=== PATIENT | male | born 1990 | race Caucasian/White ===

== ENCOUNTER 2023-03-09 06:28 | Emergency (ER) | payer OTHER, SELFPAY ==
[2023-03-09 06:31] VITALS: BP 170/110
--- NOTE | 2023-03-09 06:50 | ED.GENMED ---
History of Present Illness
General
Chief Complaint: Back Pain
Source: patient
Exam Limitations: none
Time Seen by Provider: 03/09/23 06:38
Nursing documentation reviewed up to this point in time: agreed with
Travel History
Have you had any contact with someone who has COVID-19?: No
Do you have any symptoms of coronavirus? Fever > 100 degrees, chills, cough, shortness of breath, sore throat, loss of taste or smell, muscle aches, or headache?: No
History of Present Illness
History of Present Illness:
33-year-old male presents emergency department complaining of low back pain and left lower back pain for the past 3 to 4 weeks. He also states he has had intermittent foul-smelling urine, and yesterday began having urinary frequency. He states he
took ibuprofen yesterday and it helps a little. It hurts when he bends down. He denies any specific injury. He has not seen his primary care doctor, as he does not have 1. He is also not seen any other physician in the past 3-4 weeks since his
pain began.
Past History
Past History
ED Past Medical History: HTN
ED Past Surgical History: None
Social History
Tobacco: Non-smoker
Alcohol: None
Drug: None
Personal:
Living: with family
Employment: Employed
Review of Systems
Review of Systems
Allergies reviewed?: Yes
All Other Systems: Not applicable
Constitutional: Reports no symptoms; Denies fever
EENT: Reports no symptoms
Respiratory: Reports no symptoms
Cardiac: Reports no symptoms
ABD/GI: Reports no symptoms
: Reports other (Smelly urine)
Musculoskeletal: Reports back pain
Skin: Reports rash (Right foot)
Neurological: Reports no symptoms
Endocrine: Reports no symptoms
Hematologic/Lymphatic: Reports no symptoms
Psychiatric: Reports no symptoms
Phy Exam
Physical Exam
Physical Exam:
Physical Exam
General: no apparent distress, not acutely ill
Neck: supple. no meningeal signs. normal posterior pharynx
Heart: s1/s2 regular rate and rhythm, no murmur. equal radial
pulses.
HEENT: Pupils equal round reactive to light, EOMI
Lungs: no acute respiratory distress. clear bilaterally
Abdomen: normal bowel sounds. not tender. no CVAT
Neuro: alert and oriented. no focal neurological deficits cranial nerves II through XII intact
Skin: Mild erythema and dry skin with cracking of right heel and medial foot. No petechiae
Psychiatric: well kept. interactive and cooperative
Extremities: no edema. no calf tenderness. negative homans. good distal pulses
Course
Orders/Labs/Results
Orders:
Orders
03/09/23 06:43
Urinalysis Reflex To Culture Urgent
Date Specimen was Collected: 03/09/23
Time Specimen was Collected: 06:42
03/09/23 06:49
Ketorolac [Toradol] 15 mg IM NOW STA
Lumbar Spine Complete, 4 View [CR Lumbar Spine Comp Min 4 Vw*] Urgent
Comment:
Reason For Exam: low back pain 3-4 weeks
Vital Signs
Initial and Last Documented VS:
Initial Vital Signs
Temp Pulse Resp BP Pulse Ox
97.8 F 80 22 170/110 98
03/09/23 06:31 03/09/23 06:31 03/09/23 06:31 03/09/23 06:31 03/09/23 06:31
Last Documented Vital Signs
Temp Pulse Resp BP Pulse Ox
97.8 F 69 18 119/75 96
03/09/23 06:31 03/09/23 07:34 03/09/23 07:34 03/09/23 07:34 03/09/23 07:34
MDM/Problems Addressed
Differential Diagnosis Includes:
Sciatica, urinary tract, kidney stone
MDM/Problems Addressed:
33 yo male with low back pain possibly sciatica. Will treat with Flexeril and prednisone, follow-up with pain management. No signs of UTI. Do not suspect kidney stone. Right-sided tinea pedis.
Chronic conditions affecting care: HTN
Acute Exacerbation and/or Progression of Chronic Illness: HTN
*Radiology
Radiology exam reviewed: preliminary read by ED provider (Lumbar spine x-ray no acute findings)
*Pulse Oximetry
Patient hypoxic: no
*EKG
Interpreted by ED Provider?: NA
*Microfilm Duplicating Unit Supervisor Interpretation
Rate: Microfilm Duplicating Unit Supervisor- N/A
*Critical Care Note
Total Time (30-74mins, 75-104mins- exclusive of procedures): Not Applicable
Data Reviewed
Further Testing Considered But Not Given:
ct scan not indicated
Patient Management
Social determinants of health affecting care: Living situation and Strong social support
Escalation/DeEscalation of care consider admission/obs:
admit not indicated
ED Attending Note
-
Portions of this chart may have been created with voice recognition software.� Occasional wrong word or��sound alike� substitutions may have occurred due to the inherent limitations of voice recognition software.
Discharge Plan
Departure
Patient Disposition: Home (Routine Discharge)
Date of Disposition: 03/09/23
Time of Disposition: 08:13
Patient with high blood pressure during this ER visit?: No
Condition: Good
Discharge Problem:
Low back pain, Tinea pedis
Instructions: Low Back Pain (DC), Sciatica (DC), Athlete's Foot (DC)
Prescriptions:
New
cyclobenzaprine 10 mg tablet
10 mg PO TID PRN (Reason: muscle spasm) Qty: 10 0RF
prednisone 50 mg tablet
50 mg PO DAILY Qty: 5 0RF
clotrimazole [Clotrimazole AF] 1 % cream
1 applic topical BID Qty: 15 0RF
Referrals:
Gabriel Sandoval MD [Active] - Call in 1-3 days for appt
Interventions
Interventions:
*Risk Screen - Suicide Last Done: 03/09/23 06:31
*Neglect/Abuse Screening Last Done: 03/09/23 06:31
ED- Cardiac Assessment Last Done: 03/09/23 07:40
ED-Musculoskeletal Assessment Last Done: 03/09/23 06:40
ED- Neurological Assessment Last Done: 03/09/23 06:46
ED-Psychological Assessment Last Done: 03/09/23 06:48
ED- Pulmonary Assessment Last Done: 03/09/23 06:48
[2023-03-09 06:56] LABS: Urine Albumin Negative (Neg - Trace); Urine Bilirubin Negative (Negative); Urine Character Clear (Clear); Urine Color Yellow; Urine Glucose Negative (Negative); Urine Ketone Negative (Negative); Urine Leukocyte Negative (Negative); Urine Nitrite Negative (Negative); Urine Occult Blood Negative (Negative); Urine Urobilinogen Negative (Neg - 1+)
[2023-03-09] MEDS: TORADOL 15 MG IM (07:31)
[2023-03-09 07:34] VITALS: BP 119/75
== END 2023-03-09 08:35 | disposition home or self-care (01) ==
LOC: EMR 06:28
PROVIDERS: EMERGENCY PHYSICIAN Emergency Medicine
DX: B35.3 Tinea pedis (principal); M54.50 Low back pain, unspecified; R35.0 Frequency of micturition; I10 Essential (primary) hypertension; Z86.16 Personal history of COVID-19
CPT/HCPCS: 99284; 96372; 72110; 81003

== ENCOUNTER 2024-08-27 19:46 | Emergency (ER) | payer OTHER, SELFPAY ==
[2024-08-27 19:48] VITALS: BP 164/103
[2024-08-27 20:14] LABS: Hematocrit 44.2 % (39.0-52.0); Hemoglobin 15.7 g/dL (13.0-18.0); Mean Corp Hgb Conc. 35.5 g/dL (33.0-37.0); Mean Corpuscular Volume 81.0 fL (80.0-94.0); Nucleated Red Blood Cells % 0 % (-); Platelet Count 126 10^3/uL (130-400); Red Cell Dist. Width 12.5 % (11.5-14.5)
[2024-08-27 20:20] VITALS: BMI 39.3
[2024-08-27 20:22] VITALS: BP 126/87
[2024-08-27 20:36] LABS: ALT (SGPT) 233 U/L (0-50); AST (SGOT) 128 U/L (17-59); Albumin 4.4 g/dl (3.5-5.0); Alkaline Phosphatase 59 U/L (38-126); Blood Urea Nitrogen 9 mg/dl (9-20); Calcium 9.0 mg/dl (8.4-10.2); Carbon Dioxide 23 mmol/L (22-30); Chloride 109 mmol/L (98-107); Estimated Creatinine Clearance > 125 ml/min; Glucose 186 mg/dl (70-99); Potassium 4.6 mmol/L (3.5-5.1); Sodium 138 mmol/L (135-145); Total Protein 7.4 g/dl (6.3-8.2); Troponin I < 0.012 ng/ml; eGFR > 60.00
--- NOTE | 2024-08-27 20:57 | ED.GENMED ---
History of Present Illness
General
Chief Complaint: Headache
Time Seen by Provider: 08/27/24 20:57
History of Present Illness
History of Present Illness:
TIME OF INITIAL EVALUATION
- 9 PM
REVIEW OF OLD RECORDS
- The patient has a history of high blood pressure
Note:
CHIEF COMPLAINT(S)
Headache following sexual intercourse.
HISTORY OF PRESENT ILLNESS
The patient is a 34-year-old male who developed a sudden-onset headache shortly after sexual intercourse, which occurred around 4:00 AM. The patient describes the headache as initially severe and occurring unexpectedly after the completion of
intercourse. The concern for the sudden nature of the headache led to a computed tomography (CT) scan without contrast, followed by one with contrast. The initial CT scan did not reveal any signs of intracranial bleeding. The patient reports that
his headache has improved since onset. He mentions experiencing episodes of his left eyelid twitching over the past two weeks, which he describes as happening frequently. The patient denies other neurological symptoms. He does report feelings of
bloating and gastric discomfort following alcohol consumption recently, but states he is not a frequent drinker.
The patient also describes episodes where he feels excessively tired after eating. He acknowledges difficulties with weight management, as he is not consuming large amounts of food but is unable to lose weight. Initial blood work indicated elevated
liver transaminase levels, but bilirubin and alkaline phosphatase levels were normal.
The patient took Advil for his headache earlier. He expressed concerns about his heart, noting palpitations and worries about cardiac issues. An electrocardiogram (EKG) was performed, though the results were not discussed in detail during this visit.
SOCIAL DETERMINANTS AFFECTING HEALTH
The patient indicates that he does not frequently consume alcohol but recently experienced bloating and gastric discomfort after drinking.
PHYSICAL EXAM
General: Alert, no acute distress.
Skin: Warm, dry.
Head: Normocephalic, atraumatic.
Neck: Supple, trachea midline.
Eyes, Ears, Nose, Mouth, and Throat: Oral mucosa moist. No lid twitching observed at present.
Cardiovascular: Normal peripheral perfusion, No edema. Heart rhythm evaluated audibly.
Respiratory: Respirations are non-labored.
Gastrointestinal: Abdomen nondistended, reports sensitivity upon liver palpation without significant pain.
Back: Normal range of motion, Normal alignment.
Musculoskeletal: Normal range of motion, normal strength.
Neurological: Alert and oriented to person, place, time, and situation. Good coordination and strength in all limbs. No focal neurological deficit observed.
Psychiatric: Cooperative, appropriate mood and affect.
PROBLEM LIST
Acute Problems:
- Post-coital headache
- Eyelid twitching (blepharospasm)
- Elevated liver transaminase levels
- Gastric discomfort post-alcohol consumption
- Excessive postprandial fatigue
PLAN
- Await the radiologists interpretation of CT results to rule out serious neurological causes.
- Continue current management of headache with Advil (ibuprofen), 800 mg (four 200 mg tablets) every eight hours as needed.
- Follow up with primary care physician for further evaluation of elevated liver enzymes.
- Consider discussing postprandial fatigue and weight management strategies with primary care physician.
- Reassurance regarding the benign nature of left eyelid twitching.
DIFFERENTIAL DIAGNOSIS
The Differential Diagnosis includes, in no particular order and is not limited to:
- Migraine or tension-type headache
- Subarachnoid hemorrhage
- Intracerebral hemorrhage
- Hypertensive crisis
- Sinus headache
- Temporal arteritis
- Cluster headache
- Stress-related myoclonus (likely cause of eyelid twitching)
- Liver function alterations potentially due to recent alcohol consumption
- Gastroesophageal reflux disease causing gastric distress after alcohol consumption
RADIOLOGY
- I personally reviewed noncontrast head CT which shows no acute abnormality. Of note, radiologist sees no aneurysm.
EKG
- Sinus 84, left axis deviation, inferior Q waves with no old to compare
LABS
- White count and chemistries unremarkable, glucose however is slightly high at 186 and the transaminases also somewhat high but total bili and alk phos is normal. Troponin less than 0.012
UPDATE
- The patient reports spontaneously resolution of his symptoms
SUMMARY OF ENCOUNTER
The patient, a 34-year-old male, was seen in the emergency department for a sudden-onset severe headache following sexual intercourse, which occurred at 4:[address] scan of the head was performed without contrast, followed by one with contrast.
The results showed no signs of intracranial bleeding or significant aneurysm. An EKG was also performed and appeared normal. The blood work conducted did not reveal alarming issues. There was a discussion on vitamin deficiency due to the patients
reported low energy levels, but no immediate concerns were identified from the blood work. The patient was reassured and informed that nothing life-threatening was found during the examination.
DISPOSITION
Discharge.
PLAN
The plan is to discharge the patient with instructions for outpatient management and to follow up with a primary care physician regarding elevated liver enzymes and further evaluation of postprandial fatigue and weight management strategies.
INDEPENDENT REVIEW OF LABS AND INTERPRETATION OF TESTS
- My independent review of the CT scan indicates no intracranial bleeding or significant aneurysm.
- My independent review of the EKG suggests an overall normal heart rhythm.
- The blood work showed no signs indicative of a vitamin deficiency or other alarming issues.
PATIENT EDUCATION AND COUNSELING
The patient was counseled on the benign nature of his condition, reassured about the absence of life-threatening findings from the CT scan and EKG. They were advised to follow up with their primary care physician for a more detailed assessment of
the liver enzyme elevation and other non-emergency issues. The patient was educated on the potential non-necessity of vitamin bundles given a normal diet and lack of clinical indication.
MEDICATION RECONCILIATION
Ibuprofen was previously taken by the patient for headache management, with a note to continue as needed.
MEDICAL DECISION MAKING
- Number and Complexity of Problems Addressed: Acute problems include post-coital headache, eyelid twitching, elevated liver transaminase levels, gastric discomfort post-alcohol consumption, and excessive postprandial fatigue.
- Data:
- Category 1: Independent interpretation of EKG and head CT scan was performed during this visit.
- Category 2: No additional information from independent historians was necessary.
- Risk: Considered admission and escalation of care but determined outpatient management was safe due to reassuring imaging and stable patient condition.
DIAGNOSIS
- R51.9 Headache, unspecified
Past History
Past History
ED Past Medical History: HTN
ED Past Surgical History: None
Social History
Tobacco: Non-smoker
Alcohol: None
Drug: None
Personal:
Living: with family
Employment: Employed
Phy Exam
Physical Exam
Physical Exam:
See HPI
Course
Orders/Labs/Results
Orders:
Orders
08/27/24 19:51
Electrocardiogram (*1) Urgent
Reason for Study: Other
Other Reason for Exam: numbness L arm
EKG- Treatment ONCE
08/27/24 20:03
Complete Blood Count/With Diff Urgent
Comprehensive Metabolic Panel Urgent
Troponin I Urgent
08/27/24 20:13
CT Head & Neck Angio W/wo IV Urgent
Comment:
Reason For Exam: headache after sex, numbness and blurry vision
Abnormal Lab Results
08/27/24
20:03
Plt Count 126 L 10^3/uL
(130-400)
Chloride 109 H mmol/L
(98-107)
Creatinine 0.5 L mg/dL
(0.7-1.3)
Glucose 186 H mg/dl
(70-99)
AST 128 H U/L
(17-59)
ALT 233 H U/L
(0-50)
08/27/24 20:03
08/27/24 20:03
Vital Signs
Initial and Last Documented VS:
Initial Vital Signs
Temp Pulse Resp BP Pulse Ox
36.9 C 87 16 164/103 99
08/27/24 19:48 08/27/24 19:48 08/27/24 19:48 08/27/24 19:48 08/27/24 19:48
Last Documented Vital Signs
Temp Pulse Resp BP Pulse Ox
36.9 C 85 16 126/79 98
08/27/24 19:48 08/27/24 21:47 08/27/24 21:47 08/27/24 21:47 08/27/24 21:47
*Pulse Oximetry
SaO2: 96
Oxygen Mode of Delivery: Room air
Patient hypoxic: no
*Critical Care Note
Total Time (30-74mins, 75-104mins- exclusive of procedures): Not Applicable
ED Attending Note
-
Portions of this chart may have been created with voice recognition software.� Occasional wrong word or��sound alike� substitutions may have occurred due to the inherent limitations of voice recognition software.
Discharge Plan
Departure
Prescriptions:
No Action
cyclobenzaprine 10 mg tablet
10 mg PO TID PRN (Reason: muscle spasm) Qty: 10 0RF
prednisone 50 mg tablet
50 mg PO DAILY Qty: 5 0RF
clotrimazole [Clotrimazole AF] 1 % cream
1 applic topical BID Qty: 15 0RF
Referrals:
Tenthoff,Rosi Aldridge MD [Family Provider, Family Practice]
Interventions
Interventions:
*Risk Screen - Suicide Last Done: 08/27/24 20:24
*General Assessment Last Done: 08/27/24 20:24
*Neglect/Abuse Screening Last Done: 08/27/24 20:24
*ED- Fall Risk Assessment Last Done: 08/27/24 20:24
*ED COVID-19 Vaccine History Last Done: 08/27/24 20:24
ED- Neurological Assessment Last Done: 08/27/24 20:25
Discharge Date and Time
Print Language: INDONESIAN
[2024-08-27 21:47] VITALS: BP 126/79
[2024-08-27 22:26] VITALS: BP 110/81
== END 2024-08-27 22:28 | disposition home or self-care (01) ==
LOC: EMR 19:46
PROVIDERS: Student in an Organized Health Care Education/Training Program; EMERGENCY PHYSICIAN Emergency Medicine; FAMILY PHYSICIAN Family Medicine
DX: R51.9 Headache, unspecified (principal); I10 Essential (primary) hypertension; Z71.3 Dietary counseling and surveillance
CPT/HCPCS: 99284; 70496; 70498; 80053; 84484; 85025; 93005; Q9967